=== PATIENT | male | born 1995 | race Hispanic/Latino ===

== ENCOUNTER 2022-11-13 09:39 | Emergency (ER) | payer SELFPAY ==
[2022-11-13 09:55] VITALS: BP 133/78; PULSE 51; RESP 16; TEMP 36.3; O2SAT 100
--- NOTE | 2022-11-13 10:32 | ED.EYEPROB ---
HPI - Eye Problem General Chief complaint: Eye Problems Stated complaint: right eye irritated Time Seen by Provider: 11/13/22 10:15 Source: patient and RN notes reviewed Mode of arrival: ambulatory Limitations: no limitations History of Present Illness HPI Narrative: Patient presents today complaining of a 3 day history of right eye redness, itchiness, and foreign body sensation. Denies injury or trauma he has tried flushing with water without relief. Denies vision change. Visual acuity upon arrival was 20/30 in both eyes. Related Data Allergies Allergy/AdvReac Type Severity Reaction Status Date / Time No Known Allergies Allergy Verified 11/13/22 09:56 Review of Systems Review of Systems: CONSTITUTIONAL: Denies body aches, fever, chills, or sweats. EYES: Denies visual changes, discharge.+ right eye redness, foreign body sensation, itchiness ENT: Denies rhinorrhea, congestion, sore throat, or otalgia. CARDIOVASCULAR: Denies chest pain, palpitations, or edema. RESPIRATORY: Denies cough or dyspnea. GASTROINTESTINAL: Denies abdominal pain, nausea, vomiting, or diarrhea. GENITOURINARY: Denies dysuria or hematuria. SKIN: Denies rash, itching, or wounds. MUSCULOSKELETAL: Denies back pain, joint pain, or myalgia. NEUROLOGIC: Denies headache, numbness, tingling, or weakness. PSYCH: Denies depression or anxiety. PMFSH Comments At time of signature, I have reviewed and agree with nursing past medical, surgical, social and family history unless otherwise noted. Please see nursing chart for further information. There is no relevant family history pertinent to the presenting complaint Exam Narrative: GENERAL: Well-appearing, well-nourished, and in no acute distress. HEAD: Normocephalic, atraumatic. EYES: EOMI.PERRL. Left eye normal. Right eye: Mildly injected. Lids and lashes normal. Small amount of fluorescein uptake. See procedure note. ENT: Mucous membranes pink and moist. NECK: Normal AROM. CHEST: No respiratory distress. EXTREMITIES: Normal range of motion. No edema. SKIN: Warm, dry, no rash. Capillary refill normal. Normal skin turgor. NEURO: No focal deficits. Alert and oriented x3. Gait steady. PSYCH: Normal affect. No signs of depression or anxiety. Course Course Level of Care: Express Care Visit Vital Signs Vital signs: Vital Signs Temperature 97.4 F L 11/13/22 09:55 Pulse Rate 51 L 11/13/22 09:55 Respiratory Rate 16 11/13/22 09:55 Blood Pressure 133/78 11/13/22 09:55 Pulse Oximetry 100 11/13/22 09:55 Oxygen Delivery Room Air 11/13/22 09:55 Temperature 97.4 F L 11/13/22 09:55 Pulse Rate 51 L 11/13/22 09:55 Respiratory Rate 16 11/13/22 09:55 Blood Pressure 133/78 11/13/22 09:55 Pulse Oximetry 100 11/13/22 09:55 Oxygen Delivery Room Air 11/13/22 09:55 Reviewed. Pt has been instructed to follow up with his PCP regarding his elevated blood pressure today. Procedures Other Procedure Procedure 1: Other Procedure: Right eye was anesthetized with 1 drop of tetracaine and anesthesia was achieved. The eye was flushed with eye wash. Lid was inverted and examined. Moistened Qtip was used to sweep underneath the upper eyelid with 0 foreign bodies resulting. Cornea was dyed with fluorescein and 1 punctate abrasion noted to the 6 o'clock position of the iris. Pt tolerated procedure well. MDM - Eye Problem MDM Narrative Medical decision making narrative: Small corneal abrasion noted. Will start patient on a course of ofloxacin. Anticipatory guidance given. Differential Diagnosis Differential diagnosis: Likely corneal abrasion, conjunctivitis and corneal ulcer Critical Care Time Critical Care Time Critical Care Time: No Discharge Plan Discharge Clinical Impression: Abrasion of cornea, right Qualifiers: Encounter type: initial encounter Qualified Code(s): S05.01XA - Injury of conjunctiva and corneal abrasion without foreign body, ri
[2022-11-13 10:44] VITALS: PULSE 68; O2SAT 99
== END 2022-11-13 10:44 | disposition home or self-care (01) ==
PROVIDERS: Emergency Provider Nurse Practitioner
DX: S05.01XA Injury of conjunctiva and corneal abrasion without foreign body, right eye, initial encounter (principal); X58.XXXA Exposure to other specified factors, initial encounter
CPT/HCPCS: 99213; A9270; G0463